=== PATIENT | male | born 1970 | race Hispanic/Latino ===

== ENCOUNTER 2017-12-19 10:31 | Emergency (ER) | payer BC ==
[2017-12-19 10:43] VITALS: BMI 23.2
[2017-12-19 11:41] LABS: BASO % 0.5 % (0.0-2.0); EOS % 0.7 % (0.0-4.0); HEMOGLOBIN 15.7 g/dL (12.0-18.0); LYMPH # 1.2 K/uL (1.0-4.3); MEAN CELL VOLUME 87.6 fl (80.0-94.0); MEAN CORPUSCULAR HEMOGLOBIN 30.3 pg (27.0-31.0); MEAN CORPUSCULAR HGB CONC 34.6 g/dL (33.0-37.0); MEAN PLATELET VOLUME 7.2 fl (7.2-11.7); MONO # 0.3 K/uL (0.0-0.8); MONO % 6.9 % (0.0-10.0); NEUT # 3.4 K/uL (1.8-7.0); NEUT % 67.9 % (50.0-75.0); NRBC % 0.1 % (0.0-0.0); RBC 5.18 Mil/uL (4.40-5.90); RED CELL DISTRIBUTION WIDTH 13.2 % (11.5-14.5)
--- NOTE | 2017-12-19 11:47 | ED PDOC ---
HPI: Abdomen Time Seen by Provider: 12/19/17 10:54 Chief Complaint (Nursing): Abdominal Pain Chief Complaint (Provider): Abdominal Pain History Per: Patient History/Exam Limitations: no limitations Onset/Duration Of Symptoms: Days Current Symptoms Are (Timing): Still Present Quality Of Discomfort: Unable To Describe Additional Complaint(s): 47 year old male with a past medical history of diverticulitis presents to the ED complaining of mild, painful lower left quadrant abdominal pain, onset two days ago. Patient states pain is similar to pain he has had when diagnosed with Diverticulitis. Denies taking medications for pain, radiation, nausea, vomiting , diarrhea, bloody stools, and fevers. PMD: None Provided Past Medical History Reviewed: Historical Data, Nursing Documentation, Vital Signs Vital Signs: Last Vital Signs Temp 98.3 F 12/19/17 13:07 Pulse 78 12/19/17 13:07 Resp 14 12/19/17 13:07 BP 126/81 12/19/17 13:07 Pulse Ox 98 12/19/17 13:09 - Medical History PMH: Diverticulitis - Surgical History Surgical History: No Surg Hx - Family History Family History: States: Unknown Family Hx - Home Medications Home Medications: Ambulatory Orders Medication Instructions Recorded Ciprofloxacin HCl [Cipro] 500 mg PO BID #14 tablet 12/19/17 Metronidazole [Flagyl] 500 mg PO BID #14 tablet 12/19/17 - Allergies Allergies/Adverse Reactions: Allergies Allergy/AdvReac Type Severity Reaction Status Date / Time No Known Allergies Allergy Verified 12/19/17 10:52 Review of Systems ROS Statement: Except As Marked, All Systems Reviewed And Found Negative Gastrointestinal: Positive for: Abdominal Pain (left lower quadrant ) Physical Exam - Reviewed Nursing Documentation Reviewed: Yes Vital Signs Reviewed: Yes - Physical Exam Appears: Positive for: Non-toxic, No Acute Distress Head Exam: Positive for: ATRAUMATIC, NORMOCEPHALIC Skin: Positive for: Normal Color, Warm, Dry Eye Exam: Positive for: Normal appearance, EOMI, PERRL ENT: Positive for: Normal ENT Inspection Neck: Positive for: Normal, Painless ROM, Supple Cardiovascular/Chest: Positive for: Regular Rate, Rhythm. Negative for: Murmur Respiratory: Positive for: Normal Breath Sounds. Negative for: Respiratory Distress Gastrointestinal/Abdominal: Positive for: Normal Exam, Soft, Tenderness (mild tenderness to left lower quadrant ) Back: Positive for: Normal Inspection. Negative for: L CVA Tenderness, R CVA Tenderness, Vertebral Tenderness Extremity: Positive for: Normal ROM. Negative for: Pedal Edema, Deformity Neurologic/Psych: Positive for: Alert, Oriented. Negative for: Motor/Sensory Deficits - Laboratory Results Result Diagrams: 12/19/17 11:31 12/19/17 11:31 - ECG O2 Sat by Pulse Oximetry: 98 (RA) Pulse Ox Interpretation: Normal Medical Decision Making Medical Decision Making: Time: 1112 Impression: left lower quadrant pain Differentials include but not limited to diverticulitis and colitis, less likely UTI and nephroloitis. Plan: -- ED Urine Dipstick Time: 1131 Plan: -- BMP -- CBC with differentials Time: 1258 -- Patient has been re-assessed and states that he is feeling much better. Pain has now resolved. -- Patient is presenting with mild pain, no fever, no elevated WBC, or SIRS criteria, and history of diverticulitis. Discussed current guidelines of Diverticulitis with patient what do not require CT Abd & Pelvis on mild recurring diverticulitis. Patient himself prefers not to take CT Abd & Pelvis. -- Advised to follow up with primary care physician and assistant director of admissions at the clinic in 1-2 days without fail. Advised to take medication as prescribed. Return to the emergency room at any time for any new or worsening symptoms. -- Patient states he fully agrees with and understands discharge instructions. States that he agrees with the plan and disposition. Verbalized and repeated discharge instructions and plan. I have given the patient opportunity to ask any additional questions. -- Patient to expect [facility] call in 1 - 2 days. Scribe Attestation: Documented by Jamarcus Nice, acting as a scribe for Dr. Kristen Hernandez MD. Provider Scribe Attestation: All medical record entries made by the Scribe were at my direction and personally dictated by me. I have reviewed the chart and agree that the record accurately reflects my personal performance of the history, physical exam, medical decision making, and the department course for this patient. I have also personally directed, reviewed, and agree with the discharge instructions and disposition. Disposition - Clinical Impression Clinical Impression: Abdominal pain - Patient ED Disposition Is Patient to be Admitted: No Doctor Will See Patient In The: Office Counseled Patient/Family Regarding: Studies Performed, Diagnosis, Need For Followup - Disposition Referrals: [facility] [Outside] Loyda Hammonds MD [Medical Doctor] - Disposition: Routine/Home Disposition Time: 12:50 Condition: GOOD Additional Instructions: Follow up with your PCP in 2-3 days. Return for worsening immediately. Follow up with your assistant director of admissions within 1 week. Take your medications as instructed. Prescriptions: Ciprofloxacin HCl [Cipro] 500 mg PO BID #14 tablet Metronidazole [Flagyl] 500 mg PO BID #14 tablet Instructions: Diverticulitis (DC) Forms: [facility] ([place])
[2017-12-19 11:50] LABS: BLOOD UREA NITROGEN 8 mg/dl (9-20); CALCIUM 9.6 mg/dL (8.4-10.2); GFR AFRICAN-AMERICAN > 60; GFR NON-AFRICAN AMERICAN > 60
[2017-12-19 13:08] VITALS: BP 126/81; PULSE 78; RESP 14; TEMP 98.3
[2017-12-19 13:09] VITALS: O2SAT 98
== END 2017-12-19 13:09 | disposition home or self-care (01) ==
LOC: H.ER 10:31
DX: R10.32 Left lower quadrant pain (principal)

== ENCOUNTER 2018-04-20 10:20 | Emergency (ER) | payer BC ==
[2018-04-20 10:20] VITALS: BMI 23.2
[2018-04-20] MEDS ORDERED: Sodium Chloride 0.9% 1,000 ML IV STA (11:24)
[2018-04-20 12:11] LABS: BASO % 0.3 % (0.0-2.0); EOS # 0.1 K/uL (0.0-0.7); EOS % 1.3 % (0.0-4.0); HEMOGLOBIN 16.2 g/dL (12.0-18.0); LYMPH # 1.2 K/uL (1.0-4.3); MEAN CELL VOLUME 86.8 fl (80.0-94.0); MEAN CORPUSCULAR HEMOGLOBIN 30.5 pg (27.0-31.0); MEAN CORPUSCULAR HGB CONC 35.1 g/dL (33.0-37.0); MEAN PLATELET VOLUME 7.6 fl (7.2-11.7); MONO # 0.4 K/uL (0.0-0.8); MONO % 6.3 % (0.0-10.0); NEUT # 4.1 K/uL (1.8-7.0); NEUT % 71.1 % (50.0-75.0); NRBC % 0.3 % (0.0-0.0); RBC 5.3 Mil/uL (4.40-5.90); RED CELL DISTRIBUTION WIDTH 13.7 % (11.5-14.5); WHITE BLOOD COUNT 5.8 K/uL (4.8-10.8)
[2018-04-20 12:12] LABS: ALB/GLOB RATIO 1.3 (1.0-2.1); ALBUMIN 4.3 g/dL (3.5-5.0); ALT/SGPT 33 U/L (21-72); AST/SGOT 21 U/L (17-59); BLOOD UREA NITROGEN 11 mg/dl (9-20); CALCIUM 9.4 mg/dL (8.4-10.2); GFR NON-AFRICAN AMERICAN > 60
[2018-04-20 12:13] LABS: URINE BACTERIA RARE (<OCC); URINE BILIRUBIN NEGATIVE (NEGATIVE); URINE BLOOD NEGATIVE (NEGATIVE); URINE CLARITY SLIGHTY-CLOUDY (Clear); URINE COLOR YELLOW (YELLOW); URINE GLUCOSE (UA) NEG (Normal); URINE LEUKOCYTE ESTERASE NEG Leu/uL (Negative); URINE PROTEIN NEGATIVE (NEGATIVE); URINE UROBILINOGEN 0.2-1.0 mg/dL (0.2-1.0)
--- NOTE | 2018-04-20 12:13 | ED PDOC ---
HPI: Abdomen Time Seen by Provider: 04/20/18 10:39 Chief Complaint (Nursing): Abdominal Pain History Per: Patient Additional Complaint(s): Pt. states sicne Friday night he's had LLQ abdominal pain. States symptoms are the same as to when he's had diverticulitis in the past. Reports that he last had a CT done 2 years ago which showed the diverticulitis. Last BM was today and was normal. Denies fever, dysuria, hematuria, back pain, flank pain, melena, hematochezia, BRBPR. Past Medical History Reviewed: Historical Data, Nursing Documentation, Vital Signs - Medical History PMH: Diverticulitis - Surgical History Surgical History: No Surg Hx - Family History Family History: States: No Known Family Hx - Home Medications Home Medications: Ambulatory Orders Medication Instructions Recorded Ciprofloxacin HCl [Cipro] 500 mg PO BID #14 tablet 12/19/17 Metronidazole [Flagyl] 500 mg PO BID #14 tablet 12/19/17 Ciprofloxacin [Cipro] 500 mg PO BID #14 tab 04/20/18 metroNIDAZOLE [Flagyl] 500 mg PO BID #14 tab 04/20/18 - Allergies Allergies/Adverse Reactions: Allergies Allergy/AdvReac Type Severity Reaction Status Date / Time No Known Allergies Allergy Verified 12/19/17 10:52 Review of Systems ROS Statement: Except As Marked, All Systems Reviewed And Found Negative Gastrointestinal: Positive for: Abdominal Pain Physical Exam - Physical Exam Appears: Positive for: Well, Non-toxic, No Acute Distress Skin: Positive for: Normal Color, Warm. Negative for: Rash Eye Exam: Positive for: Normal appearance. Negative for: Scleral icterus Cardiovascular/Chest: Positive for: Regular Rate, Rhythm Respiratory: Positive for: Normal Breath Sounds Gastrointestinal/Abdominal: Positive for: Normal Exam, Bowel Sounds, Soft. Negative for: Tenderness, Distended, Guarding, Rebound Back: Positive for: Normal Inspection. Negative for: L CVA Tenderness, R CVA Tenderness Neurologic/Psych: Positive for: Alert, Oriented (x3) - Laboratory Results Result Diagrams: 04/20/18 11:50 04/20/18 11:50 - Progress ED Course And Treament: Labs ordered. WBC not elevated. Pt. informed that he does not require CT at this time. Agrees that he does not need CT nor does he want to obtain a CT of his abd/pelvis. Prefers to take PO Cipro/flagyl. Agrees with plan and care. Disposition - Clinical Impression Clinical Impression: Diverticulitis - Patient ED Disposition Is Patient to be Admitted: No - Disposition Referrals: [facility] [Outside] Disposition: Routine/Home Disposition Time: 12:13 Condition: IMPROVED Additional Instructions: FINA TIMMONS, thank you for letting us take care of you today. Your provider was Duc Calderon MD and you were treated for ABD PAIN. The emergency medical care you received today was directed at your acute symptoms. If you were p rescribed any medication, please fill it and take as directed. It may take several days for your symptoms to resolve. Return to the Emergency Department if your symptoms worsen, do not improve, or if you have any other problems. Please contact your doctor or call one of the physicians/clinics you have been referred to that are listed on the Patient Visit Information form that is included in your discharge packet. Bring any paperwork you were given at discharge with you along with any medications you are taking to your follow up visit. Our treatment cannot replace ongoing medical care by a primary care provider outside of the emergency department. Thank you for allowing the [facility] team to be part of your care today. If you had an X-Ray or CT scan: A Radiologist will review the ED reading if any change in treatment is needed we will contact you. If you had a blood, urine, or wound culture: It will take several days for the results, if any change in treatment is needed we will contact you. If you had an STI test: It will take 48 hours for the results. Please call after 1 week if you have not heard back. Prescriptions: Ciprofloxacin [Cipro] 500 mg PO BID #14 tab metroNIDAZOLE [Flagyl] 500 mg PO BID #14 tab Instructions: Diverticulitis (DC) Forms: [facility] ([place]), [facility] ED School/Work Excuse
[2018-04-20 12:15] VITALS: RESP 19
[2018-04-20 12:41] VITALS: BP 128/78; PULSE 78; TEMP 97; O2SAT 98
== END 2018-04-20 12:50 | disposition home or self-care (01) ==
LOC: H.ER 10:20
DX: K57.92 Diverticulitis of intestine, part unspecified, without perforation or abscess without bleeding (principal)
CPT/HCPCS: 80053; 81003; 85025; 87040; 99283; J7030